=== PATIENT | female | born 1950 | race Two or more races ===

== ENCOUNTER 2016-09-17 11:04 | Outpatient (CLI) | payer MEDICAID | END 2016-09-17 11:05 | disposition home or self-care (01) | DX: M79.643 Pain in unspecified hand (principal) ==

== ENCOUNTER 2017-03-05 10:39 | Outpatient (CLI) | payer MEDICAID ==
[2017-03-05 13:52] LABS: BASOPHILS # (AUTO) 0.1 10^3/uL (0.0-0.1); BASOPHILS % (AUTO) 1.3 %; EOSINOPHILS # (AUTO) 0.3 10^3/uL (0.0-0.7); EOSINOPHILS % (AUTO) 4.2 %; HCT - HEMATOCRIT 40.2 % (37.0-47.0); HGB - HEMOGLOBIN 13.4 g/dL (12.0-16.0); LYMPHOCYTES % (AUTO) 48.1 %; MEAN CORPUSCULAR HGB CONC 33.2 g/dL (32.0-36.0); MEAN CORPUSCULAR VOLUME 84.5 fL (81.0-99.0); MEAN PLATELET VOLUME 10.2 fL (7.9-10.8); MONOCYTES # (AUTO) 0.4 10^3/uL (0.0-1.0); MONOCYTES % (AUTO) 4.6 %; NEUTROPHILS # (AUTO) 3.4 10^3/uL (1.5-6.6); NEUTROPHILS % (AUTO) 41.8 %; NUCLEATED RED BLOOD CELLS AUTO 0.1 /100WBC; RED BLOOD COUNT 4.76 10^6/uL (4.20-5.40); RED CELL DISTRIBUTION WIDTH 13.1 % (12.0-15.0); UNCORRECTED WHITE BLOOD COUNT 8.2 x10^3/uL; WHITE BLOOD COUNT 8.2 x10^3/uL (4.8-10.8)
[2017-03-05 14:30] LABS: HEMOGLOBIN A1C 0.71 g/dL
[2017-03-05 15:23] LABS: ALBUMIN/GLOBULIN RATIO 1.3 (1.0-2.2); BILIRUBIN,TOTAL 0.4 mg/dL (0.2-1.0); BUN - BLOOD UREA NITROGEN 16 mg/dL (6-20); CALCIUM 9.3 mg/dL (8.5-10.3); CARBON DIOXIDE - CO2 26 mmol/L (21-32); CHLORIDE 102 mmol/L (101-111); CHOL/HDL RATIO 4.4 (<4.4); CHOLESTEROL 185 mg/dL; CREATININE 0.6 mg/dL (0.4-1.0); GFR - MDRD 101 (>89); GLUCOSE 127 mg/dL (70-100); HDL CHOLESTEROL 42 mg/dL; LDL/HDL RATIO 2.9 (<4.4); POTASSIUM 3.9 mmol/L (3.5-5.0); SODIUM 138 mmol/L (135-145); TOTAL PROTEIN 7.9 g/dL (6.7-8.2); TRIGLYCERIDES 114 mg/dL; VLDL CHOLESTEROL 23 mg/dL
== END 2017-03-05 10:40 | disposition home or self-care (01) ==
LOC: LAB.N 10:39
PROVIDERS: ATTEND Nurse Practitioner Gerontology
DX: E11.9 Type 2 diabetes mellitus without complications (principal)
CPT/HCPCS: 36415; 80053; 80061; 83036; 84443; 85025

== ENCOUNTER 2017-07-15 13:30 | Outpatient (CLI) | payer MEDICAID | END 2017-07-15 13:45 | disposition home or self-care (01) | LOC: RT.N 13:30 | PROVIDERS: ATTEND Nurse Practitioner Gerontology | DX: R00.2 Palpitations (principal) | CPT/HCPCS: 93005 ==

== ENCOUNTER 2017-10-29 08:00 | Outpatient (CLI) | payer MEDICARE, OTHER ==
[2017-10-29 19:55] LABS: HB2 TOTAL 15.4 g/dL; HEMOGLOBIN A1C 0.8 g/dL; HEMOGLOBIN A1C % 6.9 % (4.6-6.2)
== END 2017-10-29 23:59 | disposition home or self-care (01) ==
LOC: LAB.N 08:00
PROVIDERS: ATTEND Nurse Practitioner Gerontology
DX: E11.9 Type 2 diabetes mellitus without complications (principal); R42 Dizziness and giddiness; R00.2 Palpitations; I10 Essential (primary) hypertension
CPT/HCPCS: 36415; 83036; 93005

== ENCOUNTER 2017-10-29 13:30 | Outpatient (CLI) | payer MEDICARE, OTHER | END 2017-10-29 13:45 | disposition home or self-care (01) | LOC: RT.N 13:30 | PROVIDERS: ATTEND Nurse Practitioner Gerontology | DX: R42 Dizziness and giddiness (principal); R00.2 Palpitations; I10 Essential (primary) hypertension | CPT/HCPCS: 93005 ==

== ENCOUNTER 2018-01-14 12:57 | Outpatient (CLI) | payer MEDICARE, OTHER ==
[2018-01-14 18:57] LABS: BASOPHILS # (AUTO) 0.1 10^3/uL (0.0-0.1); BASOPHILS % (AUTO) 0.8 %; EOSINOPHILS # (AUTO) 0.3 10^3/uL (0.0-0.7); EOSINOPHILS % (AUTO) 3.6 %; HGB - HEMOGLOBIN 13.5 g/dL (12.0-16.0); LYMPHOCYTES # (AUTO) 4.3 10^3/uL (1.5-3.5); LYMPHOCYTES % (AUTO) 48.7 %; MEAN CORPUSCULAR HEMOGLOBIN 28.1 pg (27.0-31.0); MONOCYTES # (AUTO) 0.4 10^3/uL (0.0-1.0); NEUTROPHILS # (AUTO) 3.7 10^3/uL (1.5-6.6); NEUTROPHILS % (AUTO) 41.9 %; PLT - PLATELET COUNT 194 10^3/uL (130-450); RED BLOOD COUNT 4.82 10^6/uL (4.20-5.40); RED CELL DISTRIBUTION WIDTH 13.1 % (12.0-15.0); WHITE BLOOD COUNT 8.8 x10^3/uL (4.8-10.8)
[2018-01-14 19:19] LABS: ALBUMIN 4.1 g/dL (3.2-5.5); ALBUMIN/GLOBULIN RATIO 1.1 (1.0-2.2); ALKALINE PHOSPHATASE 73 IU/L (42-121); ALT ALANINE AMINOTRANSFERASE 38 IU/L (10-60); AST ASPARTATE AMINOTRANSFERASE 27 IU/L (10-42); BILIRUBIN,TOTAL 0.8 mg/dL (0.2-1.0); BUN - BLOOD UREA NITROGEN 16 mg/dL (6-20); CALCIUM 9.2 mg/dL (8.5-10.3); CARBON DIOXIDE - CO2 27 mmol/L (21-32); CHLORIDE 101 mmol/L (101-111); CHOL/HDL RATIO 4.3 (<4.4); CHOLESTEROL 179 mg/dL; CREATININE 0.6 mg/dL (0.4-1.0); GFR - MDRD 100 (>89); GLUCOSE 153 mg/dL (70-100); HDL CHOLESTEROL 42 mg/dL; LDL CHOLESTEROL,CALCULATED 103 mg/dL; LDL/HDL RATIO 2.5 (<4.4); SODIUM 137 mmol/L (135-145); TOTAL PROTEIN 7.7 g/dL (6.7-8.2); VLDL CHOLESTEROL 34 mg/dL
== END 2018-01-14 12:58 | disposition home or self-care (01) ==
LOC: LAB.N 12:57
PROVIDERS: ATTEND Nurse Practitioner Gerontology
DX: I10 Essential (primary) hypertension (principal); E03.9 Hypothyroidism, unspecified; E11.9 Type 2 diabetes mellitus without complications
CPT/HCPCS: 36415; 80053; 80061; 83721; 84443; 85025

== ENCOUNTER 2018-11-03 23:25 | Emergency (ER) | payer MEDICARE, OTHER ==
[2018-11-04 00:04] LABS: BASOPHILS # (AUTO) 0.1 10^3/uL (0.0-0.1); BASOPHILS % (AUTO) 0.7 %; EOSINOPHILS # (AUTO) 0.3 10^3/uL (0.0-0.7); EOSINOPHILS % (AUTO) 2.4 %; HGB - HEMOGLOBIN 13.9 g/dL (12.0-16.0); LYMPHOCYTES # (AUTO) 4.4 10^3/uL (1.5-3.5); LYMPHOCYTES % (AUTO) 32.4 %; MEAN CORPUSCULAR HEMOGLOBIN 27.9 pg (27.0-31.0); MEAN CORPUSCULAR HGB CONC 33.2 g/dL (32.0-36.0); MEAN PLATELET VOLUME 9.6 fL (7.9-10.8); MONOCYTES # (AUTO) 0.8 10^3/uL (0.0-1.0); MONOCYTES % (AUTO) 6.2 %; NEUTROPHILS # (AUTO) 7.9 10^3/uL (1.5-6.6); NEUTROPHILS % (AUTO) 58.3 %; PLT - PLATELET COUNT 193 10^3/uL (130-450); RED BLOOD COUNT 4.99 10^6/uL (4.20-5.40); RED CELL DISTRIBUTION WIDTH 13.3 % (12.0-15.0); WHITE BLOOD COUNT 13.6 x10^3/uL (4.8-10.8)
[2018-11-04 00:18] LABS: ALBUMIN 4.6 g/dL (3.2-5.5); ALBUMIN/GLOBULIN RATIO 1.3 (1.0-2.2); BILIRUBIN,TOTAL 0.7 mg/dL (0.2-1.0); CALCIUM 9.4 mg/dL (8.5-10.3); CREATININE 0.6 mg/dL (0.4-1.0); TOTAL PROTEIN 8.1 g/dL (6.7-8.2)
--- NOTE | 2018-11-04 00:20 | ED Physician Documentation ---
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 Review of Systems Constitutional: reports: Reviewed and negative Eyes: reports: Reviewed and negative Cardiac: reports: Chest pain / pressure. denies: Palpitations, Pedal edema Respiratory: reports: Reviewed and negative GI: reports: Nausea, Vomiting. denies: Abdominal Pain Neurologic: reports: Generalized weakness, Headache. 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 - Present Medications Home Medications: Ambulatory Orders Medication Instructions Recorded Confirmed Levothyroxine [Synthroid] 100 mcg PO DAILY 09/24/14 12/26/15 Metformin HCl 500 mg PO BID 09/24/14 12/26/15 Metoprolol Succinate [Toprol Xl] 50 mg PO DAILY 09/24/14 12/26/15 Esomeprazole [NexIUM] 40 mg PO DAILY 04/23/15 12/26/15 Lisinopril 10 mg PO DAILY 04/23/15 12/26/15 Naproxen [Naprosyn] 500 mg PO DAILY 06/18/15 12/26/15 - Allergies Allergies/Adverse Reactions: Allergies Allergy/AdvReac Type Severity Reaction Status Date / Time shellfish derived Allergy Severe Anaphylaxis Verified 11/03/18 23:30 morphine AdvReac Severe Vommiting/M Verified 11/03/18 23:30 igraine - Social History Does the pt smoke?: No Smoking Status: Never smoker Does the pt drink ETOH?: Yes Does the pt have substance abuse?: No - Immunizations Immunizations are current?: Yes - POLST Patient has POLST: No PD ED PE NORMAL - Vitals Vital signs reviewed: Yes - General General: Alert and oriented X 3, No acute distress, Well developed/nourished - HEENT HEENT: PERRL, EOMI, Moist mucous membranes - Neck Neck: Supple, no meningeal sign - Cardiac Cardiac: RRR, No murmur, No gallop, No rub - Respiratory Respiratory: No respiratory distress, Clear bilaterally - Abdomen Abdomen: Normal bowel sounds, Soft, Non tender, Non distended - Derm Derm: Normal color, Warm and dry - Extremities Extremities: No edema - Neuro Neuro: Alert and oriented X 3, 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, No motor deficit, No sensory deficit, Normal speech Eye Opening: Spontaneous Motor: Obeys Commands Verbal: Oriented GCS Score: 15 Results - Vitals Vitals: Oxygen O2 Source [With Activity] Room air O2 Source [Without Activity] Room air O2 Source Room air - EKG (time done) No standard instances Rate: Rate (enter#) (71) Rhythm: NSR Piffard: Normal Intervals: Normal AR QRS: Normal Ischemia: Normal ST segments - Labs Labs: Laboratory Tests 11/03/18 11/03/18 11/03/18 23:32 23:43 23:43 WBC 13.6 H RBC 4.99 Hgb 13.9 Hct 41.9 MCV 84.0 MCH 27.9 MCHC 33.2 RDW 13.3 Plt Count 193 MPV 9.6 Neut # (Auto) 7.9 H Lymph # (Auto) 4.4 H Chase # (Auto) 0.8 Eos # (Auto) 0.3 Baso # (Auto) 0.1 Absolute Nucleated RBC 0.01 Nucleated RBC % 0.0 Sodium 137 Potassium 3.7 Chloride 96 L Carbon Dioxide 29 Anion Gap 12.0 BUN 20 Creatinine 0.6 Estimated GFR (MDRD) 100 Glucose 164 H POC Whole Bld Glucose 125 H Calcium 9.4 Total Bilirubin 0.7 AST 32 ALT 40 Alkaline Phosphatase 82 Troponin I Total Protein 8.1 Albumin 4.6 Globulin 3.5 Albumin/Globulin Ratio 1.3 Lipase 28 11/03/18 23:43 WBC RBC Hgb Hct MCV MCH MCHC RDW Plt Count MPV Neut # (Auto) Lymph # (Auto) Chase # (Auto) Eos # (Auto) Baso # (Auto) Absolute Nucleated RBC Nucleated RBC % Sodium Potassium Chloride Carbon Dioxide Anion Gap BUN Creatinine Estimated GFR (MDRD) Glucose POC Whole Bld Glucose Calcium Total Bilirubin AST ALT Alkaline Phosphatase Troponin I < 0.04 Total Protein Albumin Globulin Albumin/Globulin Ratio Lipase - Rads (name of study) chest xray Radiology: Prelim report reviewed, See rad report PD MEDICAL DECISION MAKING - ED course Complexity details: reviewed results, re-evaluated patient, considered differential, d/w patient Departure - Departure Disposition: 01 Home, Self Care Clinical Impression: Near syncope Condition: Good Instructions: ED Near Syncope Unkn Follow-Up: Suzanna Klein MD [Primary Care Provider] - (Call this morning to arrange for next available appointment) Discharge Date/Time: 11/04/18 03:20
--- NOTE | 2018-11-04 01:23 | XRAY Report ---
Reason: near-syncope Procedure Date: 11/04/2018 Accession Number: [id number] / [id number] Procedure: XR - Chest 2 View X-Ray CPT Code: 81458 FULL RESULT: EXAM: CHEST RADIOGRAPHY EXAM DATE: 11/04/2018 01:10 AM. CLINICAL HISTORY: Near-syncope. COMPARISON: CHEST 2 VIEW PA/LAT 06/18/2015 9:49 PM. TECHNIQUE: 2 views. FINDINGS: Lungs/Pleura: No dense consolidation. No large effusion or pneumothorax. No pulmonary edema. Mediastinum: Heart and mediastinal contours are unremarkable. Other: None. IMPRESSION: No acute radiographic pulmonary abnormalities. RADIA
[2018-11-04 03:08] VITALS: BP 101/67
== END 2018-11-04 03:20 | disposition home or self-care (01) ==
LOC: ED 23:25
DX: R55 Syncope and collapse (principal); I10 Essential (primary) hypertension; E11.9 Type 2 diabetes mellitus without complications; Z79.84 Long term (current) use of oral hypoglycemic drugs; Z96.659 Presence of unspecified artificial knee joint
CPT/HCPCS: 36415; 71046; 80053; 83690; 84484; 85025; 93005; 99283; 99284

== ENCOUNTER 2019-07-29 14:33 | Emergency (ER) | payer MEDICARE, OTHER ==
[2019-07-29 14:45] VITALS: BP 180/71
--- NOTE | 2019-07-29 15:11 | ED Physician Documentation ---
PD HPI UPPER EXT INJURY - Stated complaint Stated Complaint: R SHOULDER PX - Chief complaint Chief Complaint: Ext Problem - History obtained from History obtained from: Patient - History of Present Illness Location: Right, Shoulder Type of injury: Fall (slipped and fell 2 weeks ago onto right shoulder, with pain on ROM, particularly lifting overhead and reaching behind herself, but all motions hurt some. Guarding ROM and got sling from friend, but still not improved.) Timing - onset: How many weeks ago (2) Timing - duration: Weeks (2) Timing - details: Abrupt onset, Still present Worsened by: Moving, Palpating (at distal clavicle area) Associated symptoms: No: Weakness, Numbness Similar symptoms before: Has not had sx before Recently seen: Not recently seen Review of Systems Skin: denies: Abrasion (s), Laceration (s) Neurologic: denies: Focal weakness, Numbness PD PAST MEDICAL HISTORY - Past Medical History Cardiovascular: Hypertension Respiratory: None Endocrine/Autoimmune: Type 2 diabetes GI: GERD : None HEENT: None Psych: None Musculoskeletal: Osteoarthritis Derm: None - Past Surgical History General: Cholecystectomy Ortho: 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 replacement /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 - Present Medications Home Medications: Ambulatory Orders Medication Instructions Recorded Confirmed Levothyroxine [Synthroid] 100 mcg PO DAILY 09/24/14 12/26/15 Metformin HCl 500 mg PO BID 09/24/14 12/26/15 Metoprolol Succinate [Toprol Xl] 50 mg PO DAILY 09/24/14 12/26/15 Esomeprazole [NexIUM] 40 mg PO DAILY 04/23/15 12/26/15 Lisinopril 10 mg PO DAILY 04/23/15 12/26/15 Naproxen [Naprosyn] 500 mg PO DAILY 06/18/15 12/26/15 Naproxen 500 mg PO BID #20 tablet 07/29/19 Tramadol HCl 50 mg PO Q6H PRN #20 tablet 07/29/19 - Allergies Allergies/Adverse Reactions: Allergies Allergy/AdvReac Type Severity Reaction Status Date / Time shellfish derived Allergy Severe Anaphylaxis Verified 07/29/19 14:45 morphine AdvReac Severe Vommiting/M Verified 07/29/19 14:45 igraine - Social History Does the pt smoke?: No Smoking Status: Never smoker Does the pt drink ETOH?: Yes Does the pt have substance abuse?: No - Immunizations Immunizations are current?: Yes - POLST Patient has POLST: No PD ED PE NORMAL - Vitals Vital signs reviewed: Yes - General General: Alert and oriented X 3, No acute distress (guarded ROM of the right shoulder. ), Well developed/nourished - Neck Neck: Supple, no meningeal sign, No bony TTP - Derm Derm: Normal color, Warm and dry - Extremities Extremities: Other (The right shoulder is tender over the distal clavicle and the AC joint area. There is no obvious step-off felt. There is some tenderness along the anterior aspect as well. Slight tenderness in the upper trapezius muscle line. There is no scapular area tenderness. Range of motion of the shoulder is limited in most all motions. She does have strength evident on the rotator cuff motions though abduction extension and internal rotation hurt particularly more.) - Neuro Neuro: Alert and oriented X 3, No motor deficit, No sensory deficit Results - Vitals Vitals: Vital Signs - 24 hr 07/29/19 14:43 Temperature 36.7 C Heart Rate 76 Respiratory 18 Rate Blood Pressure 180/71 H O2 Saturation 98 Oxygen O2 Source [With Activity] Room air O2 Source [Without Activity] Room air O2 Source Room air Departure - Departure Disposition: 01 Home, Self Care Clinical Impression: Accidental fall Qualifiers: Encounter type: initial encounter Qualified Code(s): W19.XXXA - Unspecified fall, initial encounter Rotator cuff strain Qualifiers: Encounter type: initial encounter Laterality: right Qualified Code(s): S46.011A - Strain of muscle(s) and tendon(s) of the rotator cuff of right shoulder, initial encounter Condition: Stable Record reviewed to determine appropriate education?: Yes Instructions: ED Tendinitis Rotator Cuff Follow-Up: Suzanna Klein MD [Primary Care Provider] - Alejo Kelly MD [Provider Admit Priv/Credential] - Prescriptions: Naproxen 500 mg PO BID #20 tablet Tramadol HCl 50 mg PO Q6H PRN #20 tablet PRN Reason: Pain Comments: Use your sling intermittently to help rest the shoulder. Gentle range of motion and light use of it at times is good so does not stiffen up. There is some arthritis at your AC joint which is the end of the collarbone. This may be causing some of your symptoms and should improve with anti-inflammatories. However it does sound likely you have some rotator cuff injury as well. Use the naproxen anti-inflammatories and add Tylenol or tramadol if needed for pains. Follow-up with Dr. Klein this coming week as planned anyway but also consider following up with orthopedics for reevaluation and further treatment. No heavy lifting overhead reaching or push pull with the arm for the next week or so.
[2019-07-29] MEDS ORDERED: HYDROcod/ACETAM 5/325 MG TABLET PO STA (15:36)
[2019-07-29] MEDS ORDERED: IBUPROFEN 600 MG TABLET PO STA (15:36)
--- NOTE | 2019-07-29 16:20 | XRAY Report ---
Reason: fall onto right shoulder 2 weeks ago Procedure Date: 07/29/2019 Accession Number: [id number] / [id number] Procedure: XR - Shoulder 3 View RT CPT Code: Final Report FULL RESULT: EXAM: RIGHT SHOULDER RADIOGRAPHY EXAM DATE: 07/29/2019 04:05 PM. CLINICAL HISTORY: Fall onto right shoulder 2 weeks ago. COMPARISON: None. TECHNIQUE: 3 views. FINDINGS: Bones: No acute fracture. Joints: No dislocation or subluxation. There is mild joint space narrowing and spurring at the acromioclavicular joint. Soft tissues: No periarticular calcifications demonstrated. No focal soft tissue swelling. Visualized portions of the right lung are clear. IMPRESSION: 1. No acute osseous or articular abnormality. 2. 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 RADIA
== END 2019-07-29 17:06 | disposition home or self-care (01) ==
LOC: ED 14:33
DX: S46.011A Strain of muscle(s) and tendon(s) of the rotator cuff of right shoulder, initial encounter (principal); W01.0XXA Fall on same level from slipping, tripping and stumbling without subsequent striking against object, initial encounter; I10 Essential (primary) hypertension; E11.9 Type 2 diabetes mellitus without complications; Z79.84 Long term (current) use of oral hypoglycemic drugs
CPT/HCPCS: 73030; 99283; 99284; A9270

== ENCOUNTER 2019-08-10 09:48 | Outpatient (CLI) | payer MEDICARE, OTHER ==
--- NOTE | 2019-08-11 08:47 | Mammography Report ---
Reason: ROUTINE MAMMO Procedure Date: 08/10/2019 Accession Number: [id number] / [id number] Procedure: MGN - Screening Mammo Dig Bilat CPT Code: Final Report FULL RESULT: EXAM: Screening Mammo Dig Bilat DATE: 08/10/2019 10:22 AM CLINICAL HISTORY: Screening encounter. History of benign right breast biopsy. TECHNIQUE: (B) - Bilateral CC and MLO views were obtained. COMPARISON: 11/08/2015. PARENCHYMAL PATTERN: (A) - The breast(s) demonstrate(s) scattered fibroglandular densities. FINDINGS: There are typically benign vascular calcifications and typically benign coarse calcifications. Right breast postbiopsy changes are again seen. There are no suspicious masses, calcifications, or areas of distortion. IMPRESSION: Benign findings. BI-RADS category 2. RECOMMENDATION: (ANNUAL) - Recommend routine annual screening mammography. BI-RADS CATEGORY: (2) - Benign Findings. STANDARD QUALIFYING STATEMENTS: 1. This examination was not reviewed with the aid of Computer-Aided Detection (CAD). 2. A negative or benign imaging report should not preclude biopsy if clinically suspicious findings are present. 3. Dense breasts may obscure an underlying neoplasm. 4. This examination was reviewed without the aid of 3D breast imaging (tomosynthesis).
== END 2019-08-10 09:49 | disposition home or self-care (01) ==
LOC: DI.N 09:48
PROVIDERS: ATTEND Internal Medicine
DX: Z12.31 Encounter for screening mammogram for malignant neoplasm of breast (principal)
CPT/HCPCS: 77067